=== PATIENT | male | born 1960 | race Two or more races ===

== ENCOUNTER 2023-12-08 05:57 | Day surgery (SDC) | payer OTHER ==
[2023-12-08] MEDS ORDERED: OXYC1TAB9 PO (10:23)
== END 2023-12-08 14:40 | disposition home or self-care (01) ==
LOC: CIR.AMB 05:57
PROVIDERS: ATTEND Surgery
DX: K64.2 Third degree hemorrhoids (principal); K62.5 Hemorrhage of anus and rectum; K64.4 Residual hemorrhoidal skin tags; K64.8 Other hemorrhoids; I10 Essential (primary) hypertension

== ENCOUNTER 2024-10-01 09:12 | Outpatient (CLI) | payer OTHER ==
[~2024-10-01 09:12] MED LIST: OXYC1TAB9 PO
== END 2024-10-01 09:15 | disposition home or self-care (01) ==
LOC: SONOGRAMA 09:12
PROVIDERS: ATTEND Pathology Anatomic Pathology
DX: D44.0 Neoplasm of uncertain behavior of thyroid gland (principal); D34 Benign neoplasm of thyroid gland; E07.89 Other specified disorders of thyroid; E04.2 Nontoxic multinodular goiter